=== PATIENT | female | born 1960 | race American Indian/Alaskan Native ===

== ENCOUNTER 2017-10-20 12:42 | Emergency (ER) | payer BC ==
[2017-10-20 12:54] VITALS: BMI 26.2
[2017-10-20 12:56] VITALS: O2SAT 100
[2017-10-20] MEDS ORDERED: Sodium Chloride 0.9% 1,000 ML IV ONE (13:31)
[2017-10-20] MEDS ORDERED: Sodium Chloride 0.9% 1,000 ML ONE (14:03)
--- NOTE | 2017-10-20 14:11 | RAD ---
PROCEDURE: Radiographs of the chest and abdomen (obstructive series) HISTORY: Abdominal pain COMPARISON: No prior. TECHNIQUE: AP radiograph of the chest, with upright and supine radiographs of the abdomen. FINDINGS: CHEST: Lungs: Clear. Cardiovascular: Normal size heart. No pulmonary vascular congestion. Pleura: No pleural fluid. No apparent pneumothorax. Minor biapical pleural thickening Other findings: None. ABDOMEN AND PELVIS: Bowel: Unremarkable bowel gas pattern. No evidence of mechanical obstruction. Free air: No gross free intraperitoneal air seen under the diaphragmatic surfaces. . Bones: Unremarkable. Other findings: Multiple large rounded an elliptical shaped calcifications overlying the true pelvis consistent with calcified uterine fibroids. IMPRESSION: No acute cardiopulmonary disease. Multiple large calcifications overlying the pelvis consistent with calcified uterine fibroids. No evidence acute mechanical bowel obstruction.
[2017-10-20 14:20] LABS: BASO % 0.3 % (0.0-2.0); EOS % 0.7 % (0.0-4.0); HEMOGLOBIN 13.3 g/dL (11.0-16.0); LYMPH % 33.5 % (20.0-40.0); MEAN CELL VOLUME 98.5 fL (81.0-99.0); MEAN CORPUSCULAR HEMOGLOBIN 34.3 pg (27.0-31.0); MEAN CORPUSCULAR HGB CONC 34.8 g/dL (33.0-37.0); MEAN PLATELET VOLUME 7.7 fL (7.2-11.7); MONO # 0.4 K/uL (0.0-0.8); MONO % 6.4 % (0.0-10.0); NEUT # 3.6 K/uL (1.8-7.0); NEUT % 59.1 % (50.0-75.0); RBC 3.88 Mil/uL (3.80-5.20); RED CELL DISTRIBUTION WIDTH 13.7 % (11.5-14.5)
[2017-10-20 14:30] LABS: HCG,QUALITATIVE URINE NEGATIVE (NEGATIVE)
[2017-10-20 14:34] LABS: URINE BILIRUBIN NEGATIVE (NEGATIVE); URINE BLOOD 2+ (NEGATIVE); URINE CLARITY Clear (Clear); URINE COLOR Yellow (YELLOW); URINE GLUCOSE (UA) NORMAL (Normal); URINE LEUKOCYTE ESTERASE NEG Leu/uL (Negative); URINE PROTEIN NEGATIVE (NEGATIVE); URINE UROBILINOGEN NORMAL mg/dL (0.2-1.0)
[2017-10-20 14:45] LABS: ALB/GLOB RATIO 1.3 (1.0-2.1); ALBUMIN 4.2 g/dL (3.5-5.0); ALT/SGPT 42 U/L (9-52); AST/SGOT 35 U/L (14-36); BLOOD UREA NITROGEN 8 mg/dL (7-17); CALCIUM 9.4 mg/dl (8.6-10.4); GFR AFRICAN-AMERICAN > 60; GFR NON-AFRICAN AMERICAN > 60; LIPASE 41 U/L (23-300)
--- NOTE | 2017-10-20 15:18 | C.PDOC ---
History Of Present Illness 57-year-old female, whose PMHx includes uterine fibroids, presents to the ED for evaluation of nausea and episodes of vomiting which began yesterday. Patient states she had episodes of vomiting yesterday, but only nausea today. Patient does not recall eating any high-risk foods. She denies sick contacts, fever, chills, abdominal pain, diarrhea. Time Seen by Provider: 10/20/17 13:23 Chief Complaint (Nursing): GI Problem History Per: Patient History/Exam Limitations: no limitations Onset/Duration Of Symptoms: Hrs Current Symptoms Are (Timing): Still Present Radiation Of Pain To:: None Quality Of Discomfort: denies: "Pain" Associated Symptoms: Nausea, Vomiting. denies: Fever, Chills, Diarrhea Additional History Per: Patient Abnormal Vaginal Bleeding: No Past Medical History Reviewed: Historical Data, Nursing Documentation, Vital Signs Vital Signs: Last Vital Signs Temp 98.6 F 10/20/17 15:45 Pulse 59 L 10/20/17 15:45 Resp 17 10/20/17 15:45 BP 150/96 H 10/20/17 15:45 Pulse Ox 100 10/20/17 22:54 - Medical History PMH: No Chronic Diseases Surgical History: No Surg Hx Family History: States: Unknown Family Hx - Social History Hx Alcohol Use: Yes Hx Substance Use: Yes (socially) - Immunization History Hx Tetanus Toxoid Vaccination: No Hx Influenza Vaccination: No Hx Pneumococcal Vaccination: No Review Of Systems Constitutional: Negative for: Fever, Chills Gastrointestinal: Positive for: Nausea, Vomiting. Negative for: Abdominal Pain , Diarrhea Physical Exam - Physical Exam Appears: Non-toxic, No Acute Distress Skin: Normal Color, Warm, Dry Head: Atraumatic, Normacephalic Eye(s): bilateral: Normal Inspection Oral Mucosa: Moist Neck: Supple Chest: Symmetrical, No Deformity, No Tenderness Cardiovascular: Rhythm Regular, No Murmur Respiratory: Normal Breath Sounds, No Rales, No Rhonchi, No Wheezing Gastrointestinal/Abdominal: Soft, No Tenderness, No Guarding, No Rebound Extremity: Normal ROM, Capillary Refill (less than 2 seconds ) Neurological/Psych: Oriented x3, Normal Speech, Normal Cognition ED Course And Treatment - Laboratory Results Result Diagrams: 10/20/17 14:12 10/20/17 14:12 Lab Interpretation: Normal (ua neg, trop neg.) Urine POC: Negative O2 Sat by Pulse Oximetry: 100 (on RA) Pulse Ox Interpretation: Normal - Radiology CXR: Interpreted by Me CXR Interpretation: Yes: No Acute Disease - Other Rad abd x 2\\ X-Ray: Interpreted by Me (normal stool/gas pattern, + uterine fibroids) Abdomen Obstructive Series XR X-Ray: Viewed By Me, Read By Radiologist Interpretation: IMPRESSION: No acute cardiopulmonary disease. Multiple large calcifications overlying the pelvis consistent with calcified uterine fibroids. No evidence acute mechanical bowel obstruction. Progress Note: Bloodwork, urinalysis, Obstructive Series Abdomen, EKG ordered and reviewed. Protonix IVP, Zofran IVP and IV Fluids administered. Reevaluation Time: 15:16 Reassessment Condition: Improved Medical Decision Making Medical Decision Making: gastritis vs food-born intol normal w/u neg trop so low likelyhood of atypical CP known uterine fibroids without contributory antmia. no UTI Disposition Doctor Will See Patient In The: Office Counseled Patient/Family Regarding: Studies Performed, Diagnosis - Disposition Referrals: [facility] [Outside] [facility] [Outside] [facility] [Outside] Disposition: HOME/ ROUTINE Disposition Time: 15:18 Condition: GOOD Additional Instructions: protonix 20 mg daily for 1 week to lower stomach acid in presumed gastritis bland diet and plenty of fluids for 3 days rest. Instructions: Nausea and Vomiting, Adult Forms: [facility] ([place]), Work Excuse - Clinical Impression Clinical Impression: Nausea & vomiting - Scribe Statement The provider has reviewed the documentation as recorded by the Scribe (Viki Wahl) Provider Attestation: All medical record entries made by the Scribe were at my direction and personally dictated by me. I have reviewed the chart and agree that the record accurately reflects my personal performance of the history, physical exam, medical decision making, and the department course for this patient. I have also personally directed, reviewed, and agree with the discharge instructions and disposition.
[2017-10-20 15:57] VITALS: BP 150/96; PULSE 59; RESP 17; TEMP 98.6
== END 2017-10-20 15:53 | disposition home or self-care (01) ==
LOC: C.ER 12:42
DX: R11.2 Nausea with vomiting, unspecified (principal)
CPT/HCPCS: 74022; 80053; 81001; 83690; 84484; 84703; 85025; 96361; 96374; 96375; 99284; C9113; J2405; J7030

== ENCOUNTER 2017-11-12 13:03 | Emergency (ER) | payer BC ==
[2017-11-12 13:03] VITALS: BMI 26.2
[2017-11-12 13:21] VITALS: O2SAT 97
[2017-11-12] MEDS ORDERED: Lidocaine 5% Patch TD STA (14:13)
[2017-11-12] MEDS ORDERED: Lidocaine 5% Patch TD ONE (14:18)
--- NOTE | 2017-11-12 14:30 | C.PDOC ---
History Of Present Illness 57 y/o female c/o left sided back pain that radiates to left leg, worse with sitting and movement, feels like sciatica she has had in the past. no bladder or bowel dysfunction. no numbness or tingling. Time Seen by Provider: 11/12/17 13:45 Chief Complaint (Nursing): Back Pain History Per: Patient History/Exam Limitations: no limitations Onset/Duration Of Symptoms: Days (2) Quality Of Discomfort: Sharp Severity: Moderate Previous Symptoms: Back Pain Associated Symptoms: denies: Incontinence, New Weakness, New Numbness Exacerbating Factor(s): Turning, Movement, Sitting Past Medical History Reviewed: Historical Data, Nursing Documentation, Vital Signs Vital Signs: Last Vital Signs Temp 99.0 F 11/12/17 14:33 Pulse 80 11/12/17 14:33 Resp 16 11/12/17 14:33 BP 135/86 11/12/17 14:33 Pulse Ox 97 11/13/17 20:19 - Medical History PMH: No Chronic Diseases Family History: States: Unknown Family Hx - Social History Hx Tobacco Use: No Hx Alcohol Use: Yes Hx Substance Use: Yes (socially) - Immunization History Hx Tetanus Toxoid Vaccination: No Hx Influenza Vaccination: No Hx Pneumococcal Vaccination: No Review Of Systems Constitutional: Negative for: Fever, Chills ENT: Negative for: Ear Pain, Throat Pain Cardiovascular: Negative for: Chest Pain, Palpitations Respiratory: Negative for: Cough, Shortness of Breath Gastrointestinal: Negative for: Nausea, Vomiting, Abdominal Pain Genitourinary: Negative for: Frequency, Incontinence, Pelvic Pain Musculoskeletal: Negative for: Back Pain Skin: Negative for: Rash Physical Exam - Physical Exam Appears: Non-toxic, No Acute Distress, Other (uncomfrtable appearing) Skin: Warm, Dry Head: Atraumatic, Normacephalic Eye(s): bilateral: Normal Inspection Neck: No Midline Cervical Tenderness, No Paracervical Tenderness Cardiovascular: Rhythm Regular, No Murmur Respiratory: No Decreased Breath Sounds, No Rales, No Rhonchi, No Wheezing Back: No Vertebral Tenderness, Paraspinal Tenderness (left lumbar) Pulses: Left Dorsalis Pedis: Normal, Right Dorsalis Pedis: Normal Neurological/Psych: Oriented x3, Normal Speech, Normal Cognition, Normal Cranial Nerves, Normal Motor, Normal Sensation ED Course And Treatment O2 Sat by Pulse Oximetry: 97 Medical Decision Making Medical Decision Making: pt feeling much better after meds in ed, d/c with naproxen and flexeril Disposition Counseled Patient/Family Regarding: Diagnosis, Need For Followup, Rx Given - Disposition Disposition: HOME/ ROUTINE Disposition Time: 14:51 Condition: IMPROVED Additional Instructions: No heavy lifting. Take muscle relaxant as prescribed- makes you sleepy. Take patch off back in 12 hours. Follow up with your doctyro on Tuesday-physcial therapy recommended. Prescriptions: Cyclobenzaprine [Cyclobenzaprine HCl] 10 mg PO Q8 #9 tab Naproxen 500 mg PO BID #20 tab Instructions: Sciatica (DC), Sciatica Exercises Forms: General Discharge Instructions, [facility] ([place]), Work Excuse - Clinical Impression Clinical Impression: Sciatica
[2017-11-12 14:36] VITALS: BP 135/86; PULSE 80; RESP 16; TEMP 99
== END 2017-11-12 15:00 | disposition home or self-care (01) ==
LOC: C.ER 13:03
DX: M54.30 Sciatica, unspecified side (principal)
CPT/HCPCS: 96372; 99283; J1885